=== PATIENT | female | born 1995 | race Caucasian/White ===

== ENCOUNTER → 2017-02-08 | Outpatient (CLI) | payer BC ==
[2017-02-08 17:19] LABS: HCT 37.9 % (34.0-46.0); MCH 31.4 pg (25.0-35.0); MCHC 31.7 g/dL (31.0-37.0); MCV 99.1 fL (80.0-100.0); Mean Platelet Volume 7.4; Platelet Count 258 k/uL (150-450); RBC 3.82 m/uL (3.80-5.40); RDW 12.5 % (11.5-15.5); WBC 10.4 k/uL (3.8-10.6)
[2017-02-09 02:51] LABS: Hemoglobin A1C 4.8 % (4.0-6.0)
[2017-02-09 03:11] LABS: HIV AB P24 Non-Reactive (Non-Reactive); HIV P24 AG Non-Reactive (Non-Reactive)
== END | disposition home or self-care (01) ==
LOC: LABWHC1 16:15
PROVIDERS: ATTEND Obstetrics & Gynecology Obstetrics
DX: O99.210 Obesity complicating pregnancy, unspecified trimester (principal); Z34.01 Encounter for supervision of normal first pregnancy, first trimester; Z3A.12 12 weeks gestation of pregnancy
CPT/HCPCS: 36415; 83036; 85027; 86762; 86780; 86850; 86900; 86901; 87340; 87390

== ENCOUNTER 2017-08-14 06:16 | Inpatient (IN) | payer BC ==
[2017-08-14] MEDS ORDERED: TERBUTALINE 1 MG/ML VIAL SQ PRN (06:23)
[2017-08-14] MEDS ORDERED: LIDOCAINE 1% (PF) 10 MG/ML (30 ML SDV) SQ PRN (06:23)
[2017-08-14] MEDS ORDERED: METHYLERGONOVINE 0.2 MG/ML 1 ML AMP IM PRN (06:23)
[2017-08-14] MEDS ORDERED: OXYTOCIN 10 UNIT/ML 1 ML VIAL IM PRN (06:23)
[2017-08-14] MEDS ORDERED: CARBOPROST TROMETHAMINE 250 MCG/ML 1 ML AMP IM PRN (06:23)
[2017-08-14] MEDS ORDERED: OXYTOCIN 20 UNITS/1000 ML NS 1,000 ML IV SCH ×2 (06:30→21:30)
[2017-08-14 06:35] VITALS: BMI 40.2
[2017-08-14] MEDS: LACTATED RINGERS 1,000 ML IV SCH ×3 (06:51→12:39)
[2017-08-14 06:59] LABS: Basophils % (A) 0 %; Eosinophils # (A) 0.2 k/uL (0-0.7); Eosinophils % (A) 2 %; HCT 31.3 % (34.0-46.0); HGB 10.6 gm/dL (11.4-16.0); Lymphocytes # (A) 2.2 k/uL (1.0-4.8); Lymphocytes % (A) 19 %; MCH 32.4 pg (25.0-35.0); MCV 95.2 fL (80.0-100.0); Monocytes # (A) 0.9 k/uL (0-1.0); Monocytes % (A) 7 %; Neutrophils % (A) 69 %; Platelet Count 264 k/uL (150-450); RBC 3.29 m/uL (3.80-5.40); RDW 13.4 % (11.5-15.5); WBC 11.6 k/uL (3.8-10.6)
[2017-08-14] MEDS ORDERED: DIPH,PERTUS(ACELL)TETVAC-LF 0.5 ML VIAL IM ONE (14:02)
[2017-08-14] MEDS ORDERED: ceFAZolin IN SWFI 2 GM/20 ML SYRINGE IVP ONE (19:59)
[2017-08-14] MEDS ORDERED: CITRIC ACID-SODIUM CITRATE 15 ML CUP PO ONE (19:59)
[2017-08-14] MEDS ORDERED: PRENATAL VIT-IRON-FOLIC ACID 1 EACH CAP PO ONE (20:00)
[2017-08-14] MEDS ORDERED: OXYTOCIN 10 UNIT/ML 1 ML VIAL ONE (20:27)
[2017-08-14] MEDS ORDERED: KETOROLAC 30 MG/ML 1 ML VIAL ONE (20:27)
[2017-08-14] MEDS ORDERED: PHENYLEPHRINE-0.9% NACL SYG 1 MG/10 ML SYRINGE ONE (20:27)
[2017-08-14] MEDS ORDERED: ONDANSETRON 4 MG/2 ML VIAL ONE (20:27)
[2017-08-14] MEDS ORDERED: MORPHINE SULFATE (PF) 0.3 MG/0.3 ML SYR ONE (20:27)
[2017-08-14] MEDS ORDERED: fentaNYL (PF) 50 MCG/ML 2 ML AMP ONE (20:27)
[2017-08-14] MEDS ORDERED: CHLOROPROCAINE 3% 30 MG/ML 20 ML VIAL ONE (20:27)
[2017-08-14] MEDS ORDERED: NALBUPHINE 10 MG/ML VIAL (10ML MDV) ONE (20:27)
--- NOTE | 2017-08-14 21:25 | P.OP ---
Date of Procedure: 08/14/17 Preoperative Diagnosis: IUP @ 40 weeks, arrest of 1 stage of labor Postoperative Diagnosis: same Procedure(s) Performed: primary LTCS Anesthesia: epidural Surgeon: Radha Ricci Grief Counsellor #1: Denis Chen Estimated Blood Loss (ml): 600 IV fluids (ml): 1,500 Urine output (ml): 100 Pathology: other (placenta) Condition: stable Disposition: observation Indications for Procedure: arrest of labor, pt was 4 cm at 8 am and now at 20:00 she remains 6cm for the last 2-3 hours. Operative Findings: Normal uterus tubes and ovaries were appreciated, male infant delivered at 2046 , weight of 7 lbs. 14 oz., Apgars of 9 and 9 at one and 5 minutes respectively Description of Procedure: The patient was prepped and draped in the usual fashion after spinal anesthesia was administered by anesthesia. A Pfannenstiel incision was made and extended of the abdominal cavity without difficulty. The bladder peritoneum was elevated and incised and reflected distally. A 2 cm incision was made in the transverse plane of the lower uterine segment to enter the uterus at which time clear fluid was noted. The incision was extended in both directions using the bandage scissors. The head was encountered within the field and delivered up and through the incision where the nose and mouth were thoroughly suctioned. Remainder of the infant was delivered onto the surgical field where the cord was doubly clamped, cut, and the infant was passed for resuscitative measures with weight and Apgars as noted above. A segment of cord was then doubly clamped, cut, and set aside should cord gases become necessary. The placenta was delivered manually, intact, and was grossly normal with a grossly normal three-vessel cord. The uterus was exteriorized and the interior cavity of the uterus swept of any remaining placental and membranous fragments with a laparotomy sponge. The margins of the incision were grasped with Castillo clamps and the incision closed in 2 layers. First layer was a running locking layer of 0 vicryl from margin to margin followed by a second layer of imbricating 0 vicryl from margin to margin. Any small points of bleeding were then made hemostatic with the Bovie. Once hemostasis was achieved, the posterior cul-de-sac was suctioned with a guard and the uterine and ovarian findings are as noted above. The uterus was replaced within the abdominal cavity and the gutters swept of any remaining blood fluid or clot. The incision was again reexamined and hemostasis was noted to be excellent. Any small point of bleeding were made hemostatic with the Bovie. Once hemostasis was achieved the parietal peritoneum was loosely reapproximated. The layer of muscles were examined and made hemostatic with the Bovie. Attention was then turned to the fascia which was closed with 2 running stitches of 0 Vicryl proceeding from the lateral margins to the midpoint. The subcutaneous tissues were irrigated, made hemostatic with the Bovie, and reapproximated with a running stitch of 30 vicryl. The skin was reapproximated with 4-0 vicryl. Estimated blood loss for the case was approximately 600 mL. All sponge instrument and needle counts are correct. There were no complications. The patient tolerated the procedure well and proceeded to the recovery room in stable condition. Both mother and infant are resting comfortably in recovery.
[2017-08-14] MEDS ORDERED: ZOLPIDEM 5 MG TAB PO PRN (21:26)
[2017-08-14] MEDS ORDERED: diphenhydrAMINE 50 MG CAP PO PRN (21:26)
[2017-08-14] MEDS ORDERED: METOCLOPRAMIDE 5 MG/ML 2 ML VIAL IVP PRN (21:26)
[2017-08-14] MEDS ORDERED: HYDROcodone/APAP 7.5-325MG 1 EACH TAB PO PRN (21:26)
[2017-08-14] MEDS ORDERED: diphenhydrAMINE 25 MG CAP PO PRN (21:26)
[2017-08-14] MEDS ORDERED: LANOLIN CREAM 5 GM TUBE TOPICAL PRN (21:26)
[2017-08-14] MEDS ORDERED: diphenhydrAMINE 50 MG/ML 1 ML VIAL IVP PRN ×2 (21:26)
[2017-08-14] MEDS ORDERED: ONDANSETRON 4 MG/2 ML VIAL IVP PRN (21:26)
[2017-08-14] MEDS ORDERED: NALOXONE 0.4 MG/ML 1 ML VIAL IV PRN (21:26)
[2017-08-14] MEDS ORDERED: ACETAMINOPHEN TAB 325 MG TAB PO PRN (21:26)
--- NOTE | 2017-08-14 21:26 | P.HPOB ---
History of Present Illness H&P Date: 08/14/17 Chief Complaint: IUP 2 40 0/7 weeks This is a 21 yo that presents for induction of labor. she notes good FM, no VB, LOF has been uncomplicated and she has been receiving PNC with myself since 12 weeks gestation she does have a h/o hyperparathyroidism which her PCP follows. on labs bloodtype B pos, rubella immune, RPR NR, HIV neg, GBS neg 07/11. Review of Systems Constitutional: Denies chills, Denies fatigue, Denies fever Ears, nose, mouth and throat: Denies headache Cardiovascular: Reports edema Respiratory: Denies cough, Denies dyspnea Gastrointestinal: Denies constipation, Denies diarrhea Genitourinary: Reports Past Medical History Additional Past Medical History / Comment(s): hyperparathyroidism History of Any Multi-Drug Resistant Organisms: None Reported Past Surgical History: No Surgical Hx Reported Additional Past Surgical History / Comment(s): Gallbladder removed Past Anesthesia/Blood Transfusion Reactions: No Reported Reaction Past Psychological History: No Psychological Hx Reported Smoking Status: Never smoker Past Alcohol Use History: None Reported Past Drug Use History: None Reported - Past Family History Father Family Medical History: Hypertension Medications and Allergies Home Medications Medication Instructions Recorded Confirmed Type Pnv No.95/Ferrous Fum/Folic AC 1 each PO ONCE 08/14/17 08/14/17 History [ Multivitamin Tablet] Allergies Allergy/AdvReac Type Severity Reaction Status Date / Time No Known Allergies Allergy Verified 08/14/17 06:22 Exam Osteopathic Statement: *. No significant issues noted on an osteopathic structural exam other than those noted in the History and Physical/Consult. Vital Signs Temp Pulse Resp BP Pulse Ox 08/14/17 06:21 98.4 F 100 16 133/93 98 Intake and Output 08/13/17 08/14/17 08/14/17 22:59 06:59 14:59 Other: Weight 99.79 kg - OBG Physical Exam Abdomen: gravid Cervix: 3-4/80/-3-2 soft anterior, AROM with clear fluid noted Uterus: enlarged Results Result Diagrams: 08/14/17 06:45 Abnormal Lab Results - Last 24 Hours (Table) 08/14/17 Range/Units 06:45 WBC 11.6 H (3.8-10.6) k/uL RBC 3.29 L (3.80-5.40) m/uL Hgb 10.6 L (11.4-16.0) gm/dL Hct 31.3 L (34.0-46.0) % Neutrophils # 8.0 H (1.3-7.7) k/uL Assessment and Plan (1) Term Current Visit: Yes Status: Acute Code(s): Z34.80 - ENCOUNTER FOR SUPRVSN OF NORMAL , UNSP TRIMESTER SNOMED Code(s): 02083420 Plan: plan induction of labor with pitocin, pt desires epidural for pain management.
[2017-08-14] MEDS ORDERED: LACTATED RINGERS 1,000 ML IV SCH (21:30)
[2017-08-14] MEDS ORDERED: ACETAMINOPHEN IV (For NPO) 1,000 MG in EMPTY BAG 1 BAG IVPB ONE (22:00)
[2017-08-14] MEDS ORDERED: IBUPROFEN IV 800 MG in SODIUM CHLORIDE 0.9% 250 ML IV ONE (23:00)
[2017-08-15 07:50] LABS: Basophils % (A) 0 %; Eosinophils # (A) 0.1 k/uL (0-0.7); Eosinophils % (A) 1 %; HCT 25.7 % (34.0-46.0); Lymphocytes # (A) 1.9 k/uL (1.0-4.8); Lymphocytes % (A) 13 %; MCH 31.8 pg (25.0-35.0); MCHC 32.9 g/dL (31.0-37.0); MCV 96.7 fL (80.0-100.0); Mean Platelet Volume 7.6; Monocytes # (A) 0.7 k/uL (0-1.0); Monocytes % (A) 5 %; Neutrophils # (A) 11.4 k/uL (1.3-7.7); Neutrophils % (A) 79 %; Platelet Count 220 k/uL (150-450); RBC 2.65 m/uL (3.80-5.40); RDW 13.4 % (11.5-15.5); WBC 14.4 k/uL (3.8-10.6)
[2017-08-15 07:55] LABS: HGB 8.5 gm/dL (11.4-16.0)
--- NOTE | 2017-08-15 08:21 | P.PNOBGPC ---
Subjective - Subjective Principal diagnosis: POD 1 LTCS Interval history: Pt has done well overnight, her Ortega remains as she had significant vulvar swelling last night prior to the . Clear yellow urine is noted within the catheter. She denies pain overnight and states he slept well. She is breast-feeding without difficulty. Her lochia is moderate in nature. She is tolerating a regular diet without nausea or vomiting Patient reports: Reports appetite normal, Reports voiding normally, Reports pain well controlled, Reports ambulating normally : doing well Objective - Vital Signs Latest vital signs: Vital Signs Temp Pulse Resp BP Pulse Ox 08/15/17 05:39 98.5 F 73 18 131/56 97 08/14/17 22:52 89 16 110/64 98 08/14/17 22:26 97.8 F 73 16 108/58 99 08/14/17 22:11 72 16 108/59 99 08/14/17 21:56 87 16 109/55 97 08/14/17 21:41 95 16 117/57 98 08/14/17 21:26 97.8 F 98 16 129/60 98 Intake and Output 08/14/17 08/15/17 08/15/17 22:59 06:59 14:59 Output Total 100 Balance -100 Output: Urine 100 - Exam Extremities: Present: normal, edema Abdomen: Present: normal appearance, soft Incision: Present: normal, dry, intact Uterus: Present: normal, firm - Labs Labs: Abnormal Lab Results - Last 24 Hours (Table) 08/15/17 Range/Units 07:38 WBC 14.4 H (3.8-10.6) k/uL RBC 2.65 L (3.80-5.40) m/uL Hgb 8.5 L D (11.4-16.0) gm/dL Hct 25.7 L (34.0-46.0) % Neutrophils # 11.4 H (1.3-7.7) k/uL Assessment and Plan (1) Term Current Visit: Yes Status: Acute Code(s): Z34.80 - ENCOUNTER FOR SUPRVSN OF NORMAL , UNSP TRIMESTER SNOMED Code(s): 64674757 (2) Arrested labor Current Visit: Yes Status: Acute Code(s): O62.1 - SECONDARY UTERINE INERTIA SNOMED Code(s): 78896118 (3) S/P section Current Visit: Yes Status: Acute Code(s): Z98.891 - HISTORY OF UTERINE SCAR FROM PREVIOUS SURGERY SNOMED Code(s): 584161530 Plan: We'll continue routine postoperative care. We'll discontinue her Ortega this morning advance her diet as tolerated and encourage increased ambulation throughout the day.
--- NOTE | 2017-08-15 10:59 | P.PN ---
Progress Note - Text Date:08/15 Time:650am Patient is status post . Patient seen this morning with VAS score of 9.no c/o of pruritus, no c/o nausea/vomiting, comfortable and doing well.
[2017-08-15] MEDS: SENNOSIDES-DOCUSATE SODIUM 1 EACH TAB PO SCH ×2 (14:20→20:17)
[2017-08-15] MEDS: IBUPROFEN 600 MG TAB PO PRN ×2 (16:34→23:54)
[2017-08-15] MEDS: HYDROcodone/APAP 5-325MG 1 EACH TAB PO PRN (20:37)
[2017-08-16] MEDS: HYDROcodone/APAP 5-325MG 1 EACH TAB PO PRN (04:15)
[2017-08-16] MEDS: SENNOSIDES-DOCUSATE SODIUM 1 EACH TAB PO SCH (08:23)
[2017-08-16] MEDS: IBUPROFEN 600 MG TAB PO PRN (08:23)
--- NOTE | 2017-08-16 08:55 | P.DS ---
Providers Date of admission: 08/14/17 06:16 Expected date of discharge: 08/16/17 Attending physician: Radha Ricci Primary care physician: Fred Del Real - Discharge Diagnosis(es) (1) Term Current Visit: Yes Status: Acute (2) Arrested labor Current Visit: Yes Status: Acute (3) S/P section Current Visit: Yes Status: Acute Hospital Course: This is a very pleasant 21-year-old 1 now para 1 that presented to labor and delivery on 710 for induction of labor. Patient was 40 weeks and 0 days at that time. Patient was started on Pitocin induction of labor amniotomy was eventually performed yielding clear fluid. Patient progressed minimally throughout the day eventually becoming uncomfortable and requesting an epidural. Patient was 4 cm on the start of the induction at 8 AM and only progressed to 6 cm at 2000 later that evening. At that time patient was counseled on arrest of first stage of labor in the need for primary . Patient was noted to have a low-grade temp at the time of 99.5 in addition so infection was becoming a question as well as arrest of labor. Patient was taken for primary low transverse section after informed consent was obtained. was completed without difficulty for further details on the please see the operative report. Patient had a viable male delivered at 2046 weight of 7 lbs. 14 oz., Apgars of 9 and 9 at one and 5 minutes respectively. Patient's postoperative course has been uneventful. She is ambulating and voiding without difficulty. She is tolerating a regular diet without nausea or vomiting. She states her pain is well-controlled with oral Motrin. She does wish discharge home today, On this day #2 Plan - Discharge Summary New Discharge Prescriptions: No Action Pnv No.95/Ferrous Fum/Folic AC [ Multivitamin Tablet] 1 each PO ONCE Discharge Medication List Pnv No.95/Ferrous Fum/Folic AC [ Multivitamin Tablet] 1 each PO ONCE 11/22 [History] Follow up Appointment(s)/Referral(s): Radha Ricci DO [Doctor of Osteopathic Medicine] - 2 Weeks Patient Instructions/Handouts: (DC), (GEN) Activity/Diet/Wound Care/Special Instructions: No tub baths or intercourse until 6 weeks Discharge Disposition: HOME SELF-CARE
[2017-08-16 09:06] VITALS: BP 124/68; RESP 16
[2017-08-16 13:07] VITALS: PULSE 72; TEMP 98.4
== END 2017-08-16 13:00 | disposition home or self-care (01) | DRG 765 ==
LOC: 4FBP 06:16
PROVIDERS: ADMIT Obstetrics & Gynecology Obstetrics; ATTEND Obstetrics & Gynecology Obstetrics
PROC: 00HU33Z Insertion of Infusion Device into Spinal Canal, Percutaneous Approach (ICD-10-PCS; 2017-08-14)
PROC: 3E0R3NZ Introduction of Analgesics, Hypnotics, Sedatives into Spinal Canal, Percutaneous Approach (ICD-10-PCS; 2017-08-14)
PROC: 10D00Z1 Extraction of Products of Conception, Low, Open Approach (ICD-10-PCS; principal; 2017-08-14 20:27)
DX: O62.0 Primary inadequate contractions (principal); O75.2 Pyrexia during labor, not elsewhere classified; O99.284 Endocrine, nutritional and metabolic diseases complicating childbirth; E21.3 Hyperparathyroidism, unspecified; Z37.0 Single live birth; Z3A.40 40 weeks gestation of pregnancy
CPT/HCPCS: 85025; 90715

== ENCOUNTER 2018-09-30 07:57 | Emergency (ER) | payer BC, OTHER ==
[2018-09-30 08:03] VITALS: TEMP 97.8
[2018-09-30] MEDS ORDERED: KETOROLAC 30 MG/ML 1 ML VIAL IVP STA (08:27)
[2018-09-30] MEDS ORDERED: SODIUM CHLORIDE 0.9% 1,000 ML IV STA (08:27)
[2018-09-30] MEDS ORDERED: ONDANSETRON 4 MG/2 ML VIAL IVP STA (08:27)
--- NOTE | 2018-09-30 08:40 | ED ---
General Adult HPI - General Chief complaint: Back Pain/Injury Stated complaint: kidney stone Time Seen by Provider: 09/30/18 08:04 Source: patient, RN notes reviewed Mode of arrival: ambulatory Limitations: no limitations - History of Present Illness Initial comments: 23-year-old female presents to the emergency department for a chief complaint of right-sided lower back pain. This started around 6 AM this morning. States it is radiating around to her groin as well. Patient has a family history of kidney stones but does not have any kidney stone herself. She does have some nausea no vomiting. Denies fevers or chills. Denies dysuria. Denies d ifficulty urinating. Denies any Abdominal pain but states it is radiating into the abdomen.Patient has no other complaints at this time including shortness of breath, chest pain, nausea or vomiting, headache, or visual changes. - Related Data Previous Rx's Medication Instructions Recorded HYDROcodone/APAP 5-325MG [[place] 1 tab PO Q6HR PRN #10 tab 09/30/18 5-325] Ibuprofen [Motrin] 600 mg PO Q8HR PRN #20 tab 09/30/18 Ondansetron [Zofran ODT] 4 mg PO Q8HR PRN #15 tab 09/30/18 Allergies Allergy/AdvReac Type Severity Reaction Status Date / Time No Known Allergies Allergy Verified 09/30/18 08:10 Review of Systems ROS Statement: Those systems with pertinent positive or pertinent negative responses have been documented in the HPI. ROS Other: All systems not noted in ROS Statement are negative. Past Medical History Additional Past Medical History / Comment(s): hyperparathyroidism History of Any Multi-Drug Resistant Organisms: None Reported Past Surgical History: Appendectomy, Section, Cholecystectomy Additional Past Surgical History / Comment(s): Gallbladder removed Past Anesthesia/Blood Transfusion Reactions: No Reported Reaction Past Psychological History: No Psychological Hx Reported Smoking Status: Never smoker Past Alcohol Use History: None Reported Past Drug Use History: None Reported - Past Family History Father Family Medical History: Hypertension General Exam Limitations: no limitations General appearance: alert, in no apparent distress Head exam: Present: atraumatic, normocephalic, normal inspection Eye exam: Present: normal appearance, PERRL, EOMI. Absent: scleral icterus, conjunctival injection, periorbital swelling ENT exam: Present: normal exam, mucous membranes moist Neck exam: Present: normal inspection, full ROM. Absent: tenderness, meningismus, lymphadenopathy Respiratory exam: Present: normal lung sounds bilaterally. Absent: respiratory distress, wheezes, rales, rhonchi, stridor Cardiovascular Exam: Present: regular rate, normal rhythm, normal heart sounds. Absent: systolic murmur, diastolic murmur, rubs, gallop, clicks GI/Abdominal exam: Present: soft, normal bowel sounds. Absent: distended, tenderness, guarding, rebound, rigid Back exam: Present: CVA tenderness (R). Absent: CVA tenderness (L) Neurological exam: Present: alert Psychiatric exam: Present: normal affect, normal mood Course Vital Signs 09/30/18 09/30/18 09/30/18 08:01 09:37 10:49 Temperature 97.8 F Pulse Rate 76 60 80 Respiratory 18 14 14 Rate Blood Pressure 132/73 117/70 112/62 O2 Sat by Pulse 99 98 98 Oximetry - Reevaluation(s) Reevaluation #1: 09/30/18 08:54 Delay in care by lab processing. Patient was brought into the bathroom immediately upon arrival and hCG was sent before receiving any other lab work so we could have a negative urine hCG before giving pain medication. However this was taking some time to resolve. I called to check on this at 8:50 AM and it had not even been started yet. Patient is in significant pain and is requesting pain medicine before this comes back as she does not believe she is . Medical Decision Making - Medical Decision Making 23-year-old female presents to the emergency department for right flank pain. This started approximately at 6 AM. Patient has a family history of men 1 and a history of hypercalcemia. Exam patient does have right CVA tenderness without any right lower quadrant tenderness. History of appendectomy and cholecystectomy. CBC unremarkable. CMP does show a calcium of 10.9 which patient has a history of. Glucose is 205 , no history of diabetes that she will follow up with primary care for fasting glucose. Urine does show greater than 1 82 red blood cells and clinically is consistent with a kidney stone. HCG is negative. Ultrasound of the kidneys renal and bladder show right renal stone without obstruction at the inferior pole of fullness at the renal pelvis. The left kidney shows multiple cysts in her echogenic foci that may be tiny stones. Patient likely expressing renal colic at this time. Patient reevaluated after pain medication, feels much better at this time. Patient will be discharged home with urology follow-up and pain medication. Will return here if she is any worsening symptoms. - Lab Data Result diagrams: 09/30/18 08:30 09/30/18 08:30 Lab Results 09/30/18 09/30/18 09/30/18 Range/Units 08:06 08:06 08:30 WBC (3.8-10.6) k/uL RBC (3.80-5.40) m/uL Hgb (11.4-16.0) gm/dL Hct (34.0-46.0) % MCV (80.0-100.0) fL MCH (25.0-35.0) pg MCHC (31.0-37.0) g/dL RDW (11.5-15.5) % Plt Count (150-450) k/uL Neutrophils % % Lymphocytes % % Monocytes % % Eosinophils % % Basophils % % Neutrophils # (1.3-7.7) k/uL Lymphocytes # (1.0-4.8) k/uL Monocytes # (0-1.0) k/uL Eosinophils # (0-0.7) k/uL Basophils # (0-0.2) k/uL Sodium 138 (137-145) mmol/L Potassium 4.0 (3.5-5.1) mmol/L Chloride 107 (98-107) mmol/L Carbon Dioxide 21 L (22-30) mmol/L Anion Gap 10 mmol/L BUN 13 (7-17) mg/dL Creatinine 0.65 (0.52-1.04) mg/dL Est GFR (CKD-EPI)AfAm >90 (>60 ml/min/1.73 sqM) Est GFR (CKD-EPI)NonAf >90 (>60 ml/min/1.73 sqM) Glucose 205 H (74-99) mg/dL Calcium 10.9 H (8.4-10.2) mg/dL Total Bilirubin 0.4 (0.2-1.3) mg/dL AST 27 (14-36) U/L ALT 53 H (9-52) U/L Alkaline Phosphatase 102 (38-126) U/L Total Protein 7.1 (6.3-8.2) g/dL Albumin 4.1 (3.5-5.0) g/dL Amylase 48 (30-110) U/L Lipase 69 (23-300) U/L Urine Color Yellow Urine Appearance Cloudy H (Clear) Urine pH 6.5 (5.0-8.0) Ur Specific [place] 1.018 (1.001-1.035) Urine Protein Trace H (Negative) Urine Glucose (UA) Negative (Negative) Urine Ketones Negative (Negative) Urine Blood Large H (Negative) Urine Nitrite Negative (Negative) Urine Bilirubin Negative (Negative) Urine Urobilinogen <2.0 (<2.0) mg/dL Ur Leukocyte Esterase Negative (Negative) Urine RBC >182 H (0-5) /hpf Urine WBC 6 H (0-5) /hpf Ur Squamous Epith Cells 8 H (0-4) /hpf Urine Mucus Few H (None) /hpf Urine HCG, Qual Not Detected (Not Detectd) 09/30/18 Range/Units 08:30 WBC 10.6 (3.8-10.6) k/uL RBC 4.15 (3.80-5.40) m/uL Hgb 13.3 (11.4-16.0) gm/dL Hct 39.7 (34.0-46.0) % MCV 95.8 (80.0-100.0) fL MCH 32.1 (25.0-35.0) pg MCHC 33.5 (31.0-37.0) g/dL RDW 14.1 (11.5-15.5) % Plt Count 324 (150-450) k/uL Neutrophils % 64 % Lymphocytes % 28 % Monocytes % 4 % Eosinophils % 2 % Basophils % 0 % Neutrophils # 6.8 (1.3-7.7) k/uL Lymphocytes # 2.9 (1.0-4.8) k/uL Monocytes # 0.5 (0-1.0) k/uL Eosinophils # 0.2 (0-0.7) k/uL Basophils # 0.0 (0-0.2) k/uL Sodium (137-145) mmol/L Potassium (3.5-5.1) mmol/L Chloride (98-107) mmol/L Carbon Dioxide (22-30) mmol/L Anion Gap mmol/L BUN (7-17) mg/dL Creatinine (0.52-1.04) mg/dL Est GFR (CKD-EPI)AfAm (>60 ml/min/1.73 sqM) Est GFR (CKD-EPI)NonAf (>60 ml/min/1.73 sqM) Glucose (74-99) mg/dL Calcium (8.4-10.2) mg/dL Total Bilirubin (0.2-1.3) mg/dL AST (14-36) U/L ALT (9-52) U/L Alkaline Phosphatase (38-126) U/L Total Protein (6.3-8.2) g/dL Albumin (3.5-5.0) g/dL Amylase (30-110) U/L Lipase (23-300) U/L Urine Color Urine Appearance (Clear) Urine pH (5.0-8.0) Ur Specific [place] (1.001-1.035) Urine Protein (Negative) Urine Glucose (UA) (Negative) Urine Ketones (Negative) Urine Blood (Negative) Urine Nitrite (Negative) Urine Bilirubin (Negative) Urine Urobilinogen (<2.0) mg/dL Ur Leukocyte Esterase (Negative) Urine RBC (0-5) /hpf Urine WBC (0-5) /hpf Ur Squamous Epith Cells (0-4) /hpf Urine Mucus (None) /hpf Urine HCG, Qual (Not Detectd) Disposition Clinical Impression: Renal colic on right side, Kidney stone Disposition: HOME SELF-CARE Condition: Fair Instructions (If sedation given, give patient instructions): Renal Colic (ED) Additional Instructions: Please take Motrin for pain. If pain is severe take [place]. Do not drive or operate machinery while taking [place]. Follow-up with urology in 1-2 days. Follow-up with primary care as well for repeat lab work. Return if you have any worsening symptoms. Prescriptions: Ibuprofen [Motrin] 600 mg PO Q8HR PRN #20 tab PRN Reason: Pain HYDROcodone/APAP 5-325MG [[place] 5-325] 1 tab PO Q6HR PRN #10 tab PRN Reason: Pain Ondansetron [Zofran ODT] 4 mg PO Q8HR PRN #15 tab PRN Reason: Nausea Is patient prescribed a controlled substance at d/c from ED?: No Referrals: Fred Del Real DO [Primary Care Provider] - 1-2 days Modesto Fernandez MD [STAFF PHYSICIAN] - 1-2 days Time of Disposition: 10:32
[2018-09-30 08:54] LABS: Basophils % (A) 0 %; Eosinophils # (A) 0.2 k/uL (0-0.7); Eosinophils % (A) 2 %; HCT 39.7 % (34.0-46.0); HGB 13.3 gm/dL (11.4-16.0); Lymphocytes # (A) 2.9 k/uL (1.0-4.8); Lymphocytes % (A) 28 %; MCH 32.1 pg (25.0-35.0); MCHC 33.5 g/dL (31.0-37.0); MCV 95.8 fL (80.0-100.0); Mean Platelet Volume 7.8; Monocytes # (A) 0.5 k/uL (0-1.0); Monocytes % (A) 4 %; Neutrophils # (A) 6.8 k/uL (1.3-7.7); Neutrophils % (A) 64 %; Platelet Count 324 k/uL (150-450); RBC 4.15 m/uL (3.80-5.40); RDW 14.1 % (11.5-15.5); WBC 10.6 k/uL (3.8-10.6)
[2018-09-30 09:04] LABS: ALT 53 U/L (9-52); AST 27 U/L (14-36); African American GFR (CKD) >90 (>60 ml/min/1.73 sqM); Albumin 4.1 g/dL (3.5-5.0); Alkaline Phosphatase 102 U/L (38-126); Amylase 48 U/L (30-110); Anion Gap 10 mmol/L; Blood Urea Nitrogen 13 mg/dL (7-17); Calcium 10.9 mg/dL (8.4-10.2); Carbon Dioxide 21 mmol/L (22-30); Chloride 107 mmol/L (98-107); Glucose 205 mg/dL (74-99); Sodium 138 mmol/L (137-145); Total Bilirubin 0.4 mg/dL (0.2-1.3); Total Protein 7.1 g/dL (6.3-8.2)
[2018-09-30 09:17] LABS: Appearance,Urine Cloudy (Clear); Bilirubin,Urine Negative (Negative); Blood,Urine Large (Negative); Color,Urine Yellow; Glucose,Urine (UA) Negative (Negative); Ketones,Urine Negative (Negative); Leukocyte Esterase,Urine Negative (Negative); Mucus,Urine Few /hpf; Nitrite,Urine Negative (Negative); PH, Urine 6.5 (5.0-8.0); Protein,Urine Trace (Negative); RBC,Urine >182 /hpf (0-5); Specific Gravity,Urine 1.018 (1.001-1.035); Squamous Epithelial Cell,Urine 8 /hpf (0-4); Urobilinogen,Urine <2.0 mg/dL (<2.0)
[2018-09-30 09:47] VITALS: RESP 14
[2018-09-30] MEDS ORDERED: MORPHINE SULFATE 4 MG/ML SYRINGE IVP STA (10:00)
--- NOTE | 2018-09-30 10:21 | US ---
EXAMINATION TYPE: US kidneys/renal and bladder DATE OF EXAM: 09/30/2018 COMPARISON: NONE CLINICAL HISTORY: Pain. right flank pain this am with gross hematuria, mom has MEN type 1 EXAM MEASUREMENTS: Right Kidney: 10.8 x 5.5 x 5.3cm Left Kidney: 10.9 x 4.8 x 6.4 cm Right Kidney: 0.7 x 0.6cm shadowing foci may represent a atone at inferior pole, fullness at renal pe lvis Left Kidney: multiple subcentimeter echogenic foci seen that may be tiny stones versus other etiology Bladder: not distended IMPRESSION: 1. Right renal stone without obstruction. 2. Probable multiple small left renal stones without obstruction
[2018-09-30 10:54] VITALS: BP 112/62; PULSE 80
== END 2018-09-30 10:49 | disposition home or self-care (01) ==
LOC: EC 07:57
DX: N20.0 Calculus of kidney (principal); N28.1 Cyst of kidney, acquired; Z86.39 Personal history of other endocrine, nutritional and metabolic disease; Z90.49 Acquired absence of other specified parts of digestive tract; Z90.89 Acquired absence of other organs; Z84.1 Family history of disorders of kidney and ureter
CPT/HCPCS: 36415; 80053; 82150; 83690; 85025; 81001; 81025; 76770; 96374; 96375 ×2; 96361; 99284; J2270; J2405; J1885

== ENCOUNTER → 2018-10-03 | Outpatient (CLI) | payer BC, OTHER ==
--- NOTE | 2018-10-03 14:07 | CT ---
EXAMINATION TYPE: CT abdomen pelvis wo con DATE OF EXAM: 10/03/2018 HISTORY: Right sided abdominal pain x [address] DLP: 1041.9 mGycm. Automated Exposure Control for Dose Reduction was Utilized. TECHNIQUE: CT scan of the abdomen and pelvis is performed without oral or IV contrast. COMPARISON: Renal ultrasound 3 days ago FINDINGS: Within the limitations of a non-contrast study, the following observations are made. LUNG BASES: No significant abnormality is appreciated. LIVER/GB: Cholecystectomy clips are present. PANCREAS: No significant abnormality is seen. SPLEEN: No significant abnormality is seen. ADRENALS: No significant abnormality is seen. KIDNEYS: There is 2 to 3 mm calculus right kidney midpole level coronal image 64 and 3 to 4 mm calcul us lower pole level coronal image 52. There is 2 to 3 mm calculus at right UVJ causing asymmetric mil d right-sided hydronephrosis and diffuse hydroureter. No left-sided renal calculi or hydronephrosis BOWEL: Incidental normal-appearing appendix from base of cecum right lower quadrant. No suspicious sm all or large bowel dilatation. GENITAL ORGANS: Anteverted uterus. Tiny amount of free fluid pelvic cul-de-sac axial image 119, nonsp ecific. LYMPH NODES: No greater than 1cm abdominal or pelvic lymph nodes are appreciated. OSSEOUS STRUCTURES: No significant abnormality is seen. OTHER: No significant additional abnormality is seen. IMPRESSION: There is 2 to 3 mm calculus at right UVJ causing mild right-sided hydronephrosis.
== END | disposition home or self-care (01) ==
LOC: RADCTMAIN 13:41
PROVIDERS: ATTEND Urology
DX: N13.2 Hydronephrosis with renal and ureteral calculous obstruction (principal)
CPT/HCPCS: 74176

== ENCOUNTER → 2019-02-07 | Outpatient (CLI) | payer BC, OTHER ==
[2019-02-07 10:29] LABS: Ionized Calcium 4.4 mg/dL (4.5-5.3)
[2019-02-07 10:34] LABS: Calcium 8.2 mg/dL (8.4-10.2); Magnesium 1.6 mg/dL (1.6-2.3)
== END | disposition home or self-care (01) ==
LOC: LABWHC1 09:22
PROVIDERS: ATTEND Surgery
DX: E21.0 Primary hyperparathyroidism (principal)
CPT/HCPCS: 36415; 82306; 82310; 82330; 83735; 83970

== ENCOUNTER → 2019-02-12 | Outpatient (CLI) | payer BC, OTHER ==
[2019-02-12 12:10] LABS: Ionized Calcium 4.6 mg/dL (4.5-5.3)
[2019-02-12 18:39] LABS: Calcium 8.2 mg/dL (8.7-10.3); Magnesium 1.5 mg/dL (1.5-2.4)
== END | disposition home or self-care (01) ==
LOC: LABWHC1 11:38
PROVIDERS: ATTEND Surgery
DX: E21.0 Primary hyperparathyroidism (principal); E31.21 Multiple endocrine neoplasia [MEN] type I
CPT/HCPCS: 36415; 82306; 82310; 82330; 83735; 83970

== ENCOUNTER → 2019-07-03 | Outpatient (CLI) | payer BC, OTHER | END | disposition home or self-care (01) | LOC: LABWHC1 11:46 | PROVIDERS: ATTEND Obstetrics & Gynecology Obstetrics | DX: O20.0 Threatened abortion (principal) | CPT/HCPCS: 36415; 84702; 86850; 86900; 86901 ==

== ENCOUNTER → 2019-07-05 | Outpatient (CLI) | payer BC, OTHER | END | disposition home or self-care (01) | LOC: LABMAIN 11:39 | PROVIDERS: ATTEND Obstetrics & Gynecology Obstetrics | DX: O20.0 Threatened abortion (principal) | CPT/HCPCS: 36415; 84702 ==

== ENCOUNTER → 2019-07-09 | Outpatient (CLI) | payer BC, OTHER ==
[2019-07-09 10:54] LABS: Basophils % (A) 0 %; Eosinophils # (A) 0.1 k/uL (0-0.7); Eosinophils % (A) 1 %; HCT 41.5 % (34.0-46.0); HGB 13.1 gm/dL (11.4-16.0); Lymphocytes # (A) 2.2 k/uL (1.0-4.8); Lymphocytes % (A) 28 %; MCH 32.1 pg (25.0-35.0); MCHC 31.6 g/dL (31.0-37.0); MCV 101.8 fL (80.0-100.0); Macrocytosis Slight; Mean Platelet Volume 7.4; Monocytes # (A) 0.5 k/uL (0-1.0); Monocytes % (A) 7 %; Neutrophils # (A) 4.9 k/uL (1.3-7.7); Neutrophils % (A) 62 %; Platelet Count 270 k/uL (150-450); RBC 4.08 m/uL (3.80-5.40); RDW 13.1 % (11.5-15.5); WBC 7.9 k/uL (3.8-10.6)
== END | disposition home or self-care (01) ==
LOC: LABPAT 10:00
PROVIDERS: ATTEND Obstetrics & Gynecology Obstetrics
DX: Z01.818 Encounter for other preprocedural examination (principal); Z11.59 Encounter for screening for other viral diseases; O02.1 Missed abortion
CPT/HCPCS: 86900; 86901; 85025; 86850; 36415; U0003

== ENCOUNTER → 2019-07-10 | Day surgery (SDC) | payer BC, OTHER ==
[2019-07-09 12:19] VITALS: BMI 38.4
[~2019-07-10] MED LIST: KETOROLAC 0.5% OPHTH DROPS 5 ML BTL RIGHT EYE STA; KETOROLAC 30 MG/ML 1 ML VIAL ONE; LACTATED RINGERS 1,000 ML IV ONE; LIDOCAINE 1% (10MG/ML) FOR IV START INTRADERMA ONE; LIDOCAINE 1% INJ 10MG/ML (20 ML MDV) ONE; LIDOCAINE 1%-EPI 1:100,000 20 ML VIAL SUBMUCOSAL ONE; METHYLERGONOVINE 0.2 MG/ML 1 ML AMP ONE; MIDAZOLAM 2 MG/2 ML VIAL IV ONE; MIDAZOLAM 2 MG/2 ML VIAL ONE; PROPOFOL 10 MG/ML 20 ML VIAL IV ONE; Pre Op ABX Message 1 EACH MISC MISCELLANE ONE; SILVER NITRATE APPLICATOR 1 EACH STICK..EA. TOPICAL ONE; fentaNYL (PF) 50 MCG/ML 2 ML AMP ONE
--- NOTE | 2019-07-10 12:05 | P.OP ---
Date of Procedure: 07/10/19 Preoperative Diagnosis: Missed AB Postoperative Diagnosis: same Procedure(s) Performed: Suction dilation and curettage Anesthesia: DIOGENES Surgeon: Radha Ricci Estimated Blood Loss (ml): 50 IV fluids (ml): 500 Urine output (ml): 100 Pathology: other (Uterine contents) Condition: stable Disposition: PACU Indications for Procedure: This is a 23-year-old 1 para 0 that presented to the office for follow- up ultrasound. Patient had previously had quantitative beta [place]CGs [place] 07[place]02 [place] [address] and subsequently 2 days later [place] 07[place]04 [place] [address]. Patient is noted to be Rh+. On ultrasound no growth of the gestational sac and no FHTS were noted consistent with missed AB. Operative Findings: Moderate amount of products of conception Description of Procedure: Patient was taken operating room where general anesthesia was obtained without difficulty by the anesthesia . She was prepped and draped in normal sterile fashion in the dorsal lithotomy position. Red rubber catheter was used to drain the bladder clear yellow urine. A weighted speculum was placed in the posterior vaginal vault, the anterior lip of the cervix is visualized and grasped with a single-tooth tenaculum. The endocervical canal was then dilated and an 8 curved suction curet was used to clear the uterus of a moderate amount of products of conception. A gentle sharp curettage was performed and the uterus was noted to be clear of all products. The suction curet was passed one additional time to ensure complete evacuation of uterine contents. Uterus is noted to be firm, the tooth tenaculum that had been placed on the anterior lip of the cervix was removed and hemostasis was appreciated. Next para patient tolerated procedure well all counts are correct 2 patient was taken the recovery room awake in stable condition.
[2019-07-10 12:20] VITALS: TEMP 97.9
[2019-07-10 13:01] VITALS: BP 103/62; PULSE 74; RESP 17
== END | disposition home or self-care (01) ==
LOC: OR 10:35
PROVIDERS: ATTEND Obstetrics & Gynecology Obstetrics
DX: O02.1 Missed abortion (principal); E31.21 Multiple endocrine neoplasia [MEN] type I; E89.2 Postprocedural hypoparathyroidism; E66.01 Morbid (severe) obesity due to excess calories; Z90.49 Acquired absence of other specified parts of digestive tract; Z87.442 Personal history of urinary calculi; Z98.891 History of uterine scar from previous surgery; Z82.49 Family history of ischemic heart disease and other diseases of the circulatory system; Z83.3 Family history of diabetes mellitus; Z80.3 Family history of malignant neoplasm of breast; Z80.8 Family history of malignant neoplasm of other organs or systems; Z91.041 Radiographic dye allergy status; Z68.38 Body mass index [BMI] 38.0-38.9, adult
CPT/HCPCS: 86900; 86901; 88305; 86850; 59820; J2250; J2210; J2001; J3010; J1885; J2704

== ENCOUNTER → 2019-11-03 | Outpatient (CLI) | payer BC, OTHER ==
--- NOTE | 2019-11-04 05:04 | MR ---
EXAMINATION TYPE: MR abdomen wo/w con DATE OF EXAM: 11/03/2019 COMPARISON: None HISTORY: Multiple endocrine neoplasia. CONTRAST: Standard multiplanar, multisequence MRI departmental protocol utilizing 9.5 mL intravenous gadolinium contrast. Liver shows no focal defect. Liver has normal size and contour. Spleen is intact. The stomach appears intact. Pancreas appears normal. Pancreatic duct appears normal. Gallbladder is absent. There is no adrenal mass. Kidneys have normal size and contour. There is no hydronephrosis. There is no evidence of retroperitoneal adenopathy. There is no evidence of abdominal ascites. There is no sig n of a bowel obstruction. There is no evidence of pleural effusion. Contrast images show no pathologi c enhancement. There is normal enhancement of the portal venous system. Visualized thoracic and lumba r spine appear intact. There is no evidence of thoracic paraspinal mass. There is no evidence of mese nteric edema or mesenteric mass. IMPRESSION: Normal MR scan of the abdomen. There is clearing of the right side hydronephrosis compared to old CT scan of 10/03/2018.
== END | disposition home or self-care (01) ==
LOC: RADMRIMAIN 20:22
PROVIDERS: ATTEND Internal Medicine Endocrinology, Diabetes & Metabolism
DX: E31.21 Multiple endocrine neoplasia [MEN] type I (principal)
CPT/HCPCS: 74183; A9585

== ENCOUNTER → 2020-01-12 | Outpatient (CLI) | payer BC, OTHER | END | disposition home or self-care (01) | LOC: LABWHC1 15:58 | PROVIDERS: ATTEND Family Medicine | DX: Z03.818 Encounter for observation for suspected exposure to other biological agents ruled out (principal) | CPT/HCPCS: U0003; C9803 ==

== ENCOUNTER 2020-06-15 16:54 | Outpatient (CLI) | payer BC, OTHER ==
[2020-06-15] MEDS ORDERED: BETAMET ACET-BETAMETH SOD PHOS 6 MG/ML MDV IM SCH (17:00)
== END 2020-06-15 17:11 | disposition home or self-care (01) ==
LOC: FBPOP 16:54
PROVIDERS: ATTEND Obstetrics & Gynecology Obstetrics
DX: O36.5930 Maternal care for other known or suspected poor fetal growth, third trimester, not applicable or unspecified (principal); Z3A.36 36 weeks gestation of pregnancy; Z91.041 Radiographic dye allergy status
CPT/HCPCS: 96372; J0702

== ENCOUNTER 2020-06-16 17:36 | Outpatient (CLI) | payer BC, OTHER ==
[2020-06-16] MEDS ORDERED: BETAMET ACET-BETAMETH SOD PHOS 6 MG/ML MDV IM SCH (17:45)
== END 2020-06-16 18:22 | disposition home or self-care (01) ==
LOC: FBPOP 17:36
PROVIDERS: ATTEND Obstetrics & Gynecology
DX: O36.5930 Maternal care for other known or suspected poor fetal growth, third trimester, not applicable or unspecified (principal); Z3A.36 36 weeks gestation of pregnancy; Z91.041 Radiographic dye allergy status
CPT/HCPCS: 59025; 96372; J0702

== ENCOUNTER 2020-06-22 10:04 | Inpatient (IN) | payer BC, OTHER ==
[2020-06-18 14:21] VITALS: BMI 38.4
[2020-06-22] MEDS ORDERED: CITRIC ACID-SODIUM CITRATE 15 ML CUP PO ONE (10:40)
[2020-06-22] MEDS: LACTATED RINGERS 1,000 ML IV SCH ×4 (10:52→21:27)
[2020-06-22 10:59] LABS: Basophils % (A) 0 %; Eosinophils # (A) 0.1 k/uL (0-0.7); Eosinophils % (A) 0 %; HCT 38.3 % (34.0-46.0); HGB 13.3 gm/dL (11.4-16.0); Lymphocytes # (A) 2.7 k/uL (1.0-4.8); Lymphocytes % (A) 23 %; MCH 33.2 pg (25.0-35.0); MCHC 34.7 g/dL (31.0-37.0); MCV 95.7 fL (80.0-100.0); Mean Platelet Volume 7.3; Monocytes # (A) 0.9 k/uL (0-1.0); Monocytes % (A) 7 %; Neutrophils # (A) 8.1 k/uL (1.3-7.7); Neutrophils % (A) 67 %; Platelet Count 268 k/uL (150-450); WBC 12.1 k/uL (3.8-10.6)
[2020-06-22] MEDS ORDERED: DEXAMETHASONE SOD PHOSPHATE 10 MG/ML 1 ML VIAL ONE (12:06)
[2020-06-22] MEDS ORDERED: OXYTOCIN 10 UNIT/ML 1 ML VIAL ONE (12:06)
[2020-06-22] MEDS ORDERED: diphenhydrAMINE 50 MG/ML 1 ML VIAL ONE (12:06)
[2020-06-22] MEDS ORDERED: ONDANSETRON 4 MG/2 ML VIAL ONE (12:06)
[2020-06-22] MEDS ORDERED: MORPHINE SULFATE (PF) 0.3 MG/0.3 ML SYR ONE (12:06)
[2020-06-22] MEDS ORDERED: METOCLOPRAMIDE 5 MG/ML 2 ML VIAL IVP PRN (12:56)
[2020-06-22] MEDS ORDERED: diphenhydrAMINE 50 MG/ML 1 ML VIAL IVP PRN ×2 (12:56)
[2020-06-22] MEDS ORDERED: ZOLPIDEM 5 MG TAB PO PRN (12:56)
[2020-06-22] MEDS ORDERED: ONDANSETRON 4 MG/2 ML VIAL IVP PRN (12:56)
[2020-06-22] MEDS ORDERED: SIMETHICONE 80 MG CHEWABLE PO PRN (12:56)
[2020-06-22] MEDS ORDERED: diphenhydrAMINE 25 MG CAP PO PRN (12:56)
[2020-06-22] MEDS ORDERED: diphenhydrAMINE 50 MG CAP PO PRN (12:56)
[2020-06-22] MEDS ORDERED: NALOXONE 0.4 MG/ML 1 ML VIAL IV PRN (12:56)
[2020-06-22] MEDS ORDERED: IBUPROFEN IV 800 MG in SODIUM CHLORIDE 0.9% 250 ML IV ONE (12:58)
[2020-06-22] MEDS ORDERED: ACETAMINOPHEN IV (For NPO) 1,000 MG in EMPTY BAG 1 BAG IVPB ONE (12:58)
[2020-06-22] MEDS ORDERED: OXYTOCIN 30 UNITS/500 ML NS 30 UNIT in SALINE 1 500ML.BAG IV SCH (13:00)
--- NOTE | 2020-06-22 13:02 | P.HPOB ---
History of Present Illness H&P Date: 06/22/20 Chief Complaint: IUP at 37-3/7 weeks, history of 1, growth restriction This is a 24-year-old 011 at 37-3/7 weeks that presents to labor and delivery for scheduled section. Patient has a history of 1 and desires repeat. Patient has been receiving routine care which has been complicated by growth restriction. Estimated weight has been below the 4th percentile with normal amniotic fluid index and last current SD ratio of 90th percentile. NSTs and biophysical profiles have been good throughout her 18 no period. Patient does note good movement denies contractions vaginal bleeding or loss of fluid. On bloodwork this patient has a blood type of B+, rubella status immune, hepatitis B surface antigen negative, HIV negative, RPR nonreactive. Review of Systems Constitutional: Denies chills, Denies fatigue, Denies fever Ears, nose, mouth and throat: Denies headache Cardiovascular: Reports leg edema Respiratory: Denies dyspnea Gastrointestinal: Denies constipation, Denies diarrhea, Denies nausea, Denies vomiting Genitourinary: Reports Past Medical History Past Medical History: Thyroid Disorder Additional Past Medical History / Comment(s): hyperparathyroidism, kidney stones History of Any Multi-Drug Resistant Organisms: None Reported Past Surgical History: Appendectomy, Section, Cholecystectomy Additional Past Surgical History / Comment(s): surgery on parathyroid to remove glands Past Anesthesia/Blood Transfusion Reactions: Postoperative Nausea & Vomiting (PONV) Past Psychological History: No Psychological Hx Reported Smoking Status: Never smoker Past Alcohol Use History: None Reported Past Drug Use History: None Reported - Past Family History Father Family Medical History: Hypertension Mother Family Medical History: No Reported History Medications and Allergies Home Medications Medication Instructions Recorded Confirmed Type Calcium Carbonate [Calcium] 600 mg PO DAILY 07/09/19 06/22/20 History Pnv No.95/Ferrous Fum/Folic AC 1 each PO DAILY 07/09/19 06/22/20 History [ Multivitamin Tablet] Allergies Allergy/AdvReac Type Severity Reaction Status Date / Time Iodinated Contrast Media Allergy Hives Verified 06/15/20 16:59 Iodine and Iodide Containing Allergy Rash/Hives Verified 06/18/20 14:14 Produc Exam Osteopathic Statement: *. No significant issues noted on an osteopathic struc tural exam other than those noted in the History and Physical/Consult. Vital Signs Temp Pulse Resp BP Pulse Ox 06/22/20 10:43 97.2 F L 100 18 139/83 97 Intake and Output 06/21/20 06/22/20 06/22/20 22:59 06:59 14:59 Other: Weight 95.254 kg Targeted physical exam is performed in this date and hand collator a well-nourished well-developed female in no acute distress, breathing is noted to be nonlabored, heart has a regular rate and rhythm, abdomen is gravid and appropriate for gestational age, heart tones are noted to be category 1 and she is not zak cervical exam is deferred. Results Result Diagrams: 06/22/20 10:23 Abnormal Lab Results - Last 24 Hours (Table) 06/22/20 Range/Units 10:23 WBC 12.1 H (3.8-10.6) k/uL Neutrophils # 8.1 H (1.3-7.7) k/uL Assessment and Plan (1) 37 weeks gestation of Current Visit: Yes Status: Acute Code(s): Z3A.37 - 37 WEEKS GESTATION OF SNOMED Code(s): 08455726 (2) growth restriction Current Visit: Yes Status: Acute Code(s): ACL5841 - SNOMED Code(s): 57663258 (3) H/O section Current Visit: Yes Status: Acute Code(s): Z98.891 - HISTORY OF UTERINE SCAR FROM PREVIOUS SURGERY SNOMED Code(s): 109883581 Plan: This 24-year-old 011 at 37-3/7 weeks presents for scheduled secondary to history of 1 and known growth restriction. Patient did receive steroids approximately 1 week prior to this delivery date. Patient is counseled on repeat section questions are answered Risser reviewed and patient states understanding and wishes to proceed. Patient is taken back to the operating suite.
--- NOTE | 2020-06-22 13:06 | P.OP ---
Date of Procedure: 06/22/20 Preoperative Diagnosis: IUP at 37-3/7 weeks, history of 1, desires repeat, growth restriction Postoperative Diagnosis: Same Procedure(s) Performed: Repeat section Anesthesia: spinal Surgeon: Radha Ricci Cigarette Making Machine Catcher #1: Tiffanie Dixon Estimated Blood Loss (ml): 410 IV fluids (ml): 600 Urine output (ml): 100 Pathology: other (Placenta) Condition: stable Disposition: observation Indications for Procedure: History of 1 desires repeat, known growth restriction with estimated weight about the 4th percentile Operative Findings: Uterus ovaries and fallopian tubes appeared normal. Lower uterine segment was quite thin upon entry with delivery of the . Description of Procedure: Patient was taken back to the operating suite where spinal anesthesia was found to be adequate by the anesthesia department. She was then prepped and draped in normal sterile fashion in the dorsal supine position. A Pfannenstiel skin incision was made the scalpel and carried through the underlying layer of fascia. The fascia was then incised in the midline and extended laterally. The superior aspect of the fascial incision was then grasped with [place] clamps, elevated and underlying rectus muscle was dissected off sharply. Attention was then turned the inferior aspect of the fascial incision which was grasped tarah clamps, elevated and underlying rectus muscles dissected off sharply once again. The incision was then extended superiorly and inferiorly with good visualization the bladder. The bladder blade was inserted into the pelvis. The vesicouterine peritoneum was identified and the bladder flap was then created. A hysterotomy incision was made with the scalpel amniotomy performed clear fluid was obtained. The was then delivered in the usual fashion in a vertex presentation. The umbilical cord was doubly clamped and cut and the infant was handed off to awaiting RN. The placenta was then delivered manually intact with a three-vessel cord being noted. The uterus was delivered from the abdomen. The uterus was cleared of all clots and debris. The uterine incision was closed with 0 Vicryl in a running locked fashion. A second imbricating suture was performed. Hemostasis was appreciated. The pelvis was then copiously irrigated. The uterine incision was inspected once again and found to be hemostatic. The uterus was returned to the abdomen. The gutters were cleared of all clots and debris and hysterotomy incision was inspected and found to be hemostatic. The peritoneum was loosely reapproximated. The rectus muscles were inspected and found to be hemostatic. The fascia was then closed with 0 Vicryl in a running fashion from one lateral edge the midline and the other lateral edge the midline. The subcutaneous tissue was irrigated found to be hemostatic and closed with 3-0 Vicryl in a running fashion. The skin was closed with 4-0 Vicryl in a running subcuticular fashion. Steri-Strips and sterile dressings were applied. All counts were noted to be correct 2 at the end of the procedure. Patient and infant tolerated delivery well and are resting comfo rtably.
[2020-06-22] MEDS: IBUPROFEN 600 MG TAB PO SCH (21:26)
[2020-06-22] MEDS: ACETAMINOPHEN TAB 500 MG TAB PO SCH ×2 (21:27→23:56)
[2020-06-22] MEDS: SENNOSIDES-DOCUSATE SODIUM 1 EACH TAB PO SCH (21:28)
[2020-06-23] MEDS: IBUPROFEN 600 MG TAB PO SCH ×5 (03:13→20:57)
[2020-06-23] MEDS: ACETAMINOPHEN TAB 500 MG TAB PO SCH ×3 (05:51→14:07)
[2020-06-23 07:08] LABS: Basophils % (A) 0 %; Eosinophils # (A) 0.1 k/uL (0-0.7); Eosinophils % (A) 1 %; HCT 35.7 % (34.0-46.0); HGB 12.1 gm/dL (11.4-16.0); Lymphocytes # (A) 2.7 k/uL (1.0-4.8); Lymphocytes % (A) 16 %; MCHC 33.9 g/dL (31.0-37.0); MCV 97.4 fL (80.0-100.0); Mean Platelet Volume 7.7; Monocytes # (A) 1.2 k/uL (0-1.0); Monocytes % (A) 7 %; Neutrophils # (A) 12.9 k/uL (1.3-7.7); Neutrophils % (A) 75 %; Platelet Count 234 k/uL (150-450); RBC 3.67 m/uL (3.80-5.40); RDW 12.9 % (11.5-15.5); WBC 17.2 k/uL (3.8-10.6)
[2020-06-23] MEDS: SENNOSIDES-DOCUSATE SODIUM 1 EACH TAB PO SCH ×2 (08:17→20:57)
[2020-06-23] MEDS: PRENATAL VIT-IRON-FOLIC ACID 1 EACH CAP PO SCH (08:17)
--- NOTE | 2020-06-23 08:31 | P.PNOBGPC ---
Subjective - Subjective Principal diagnosis: POD 1 RCS growth restriction Interval history: Patient did well overnight. She is ambulating and voiding without difficulty. She is tolerating a regular diet without nausea or vomiting. Her pain is well- controlled. She is breast-feeding. Patient reports: Reports appetite normal, Reports voiding normally, Reports pain well controlled, Reports ambulating normally [place]: doing well Objective - Vital Signs Latest vital signs: Vital Signs Temp Pulse Resp BP Pulse Ox 06/23/20 04:00 98.6 F 56 L 18 122/72 06/23/20 00:00 97.7 F 56 L 18 125/59 06/22/20 20:00 98.4 F 58 L 18 120/68 06/22/20 16:00 96.3 F L 54 L 15 122/71 100 06/22/20 15:00 97 F L 57 L 16 119/59 06/22/20 14:30 70 15 06/22/20 14:00 70 16 106/55 06/22/20 13:43 73 15 100/50 97 06/22/20 13:28 72 15 104/53 97 06/22/20 13:13 74 15 105/50 97 06/22/20 12:58 95.6 F L 68 16 96/54 97 06/22/20 10:43 97.2 F L 100 18 139/83 97 Intake and Output 06/22/20 06/23/20 06/23/20 22:59 06:59 14:59 Output Total 400 Balance -400 Output: Urine 400 - Exam Extremities: Present: normal, edema Abdomen: Present: normal appearance Incision: Present: normal, dry, intact Uterus: Present: normal, firm - Labs Labs: Abnormal Lab Results - Last 24 Hours (Table) 06/22/20 06/23/20 Range/Units 10:23 06:48 WBC 12.1 H 17.2 H (3.8-10.6) k/uL RBC 3.67 L (3.80-5.40) m/uL Neutrophils # 8.1 H 12.9 H (1.3-7.7) k/uL Monocytes # 1.2 H (0-1.0) k/uL Assessment and Plan (1) 37 weeks gestation of Current Visit: Yes Status: Acute Code(s): Z3A.37 - 37 WEEKS GESTATION OF SNOMED Code(s): 07667607 (2) growth restriction Current Visit: Yes Status: Acute Code(s): TMC4758 - SNOMED Code(s): 53438019 (3) H/O section Current Visit: Yes Status: Acute Code(s): Z98.891 - HISTORY OF UTERINE SCAR FROM PREVIOUS SURGERY SNOMED Code(s): 093357738 Plan: 24-year-old 3 para 1011 at 37-3/7 weeks that presented to labor and delivery for scheduled repeat section secondary to growth restriction. Patient has done well postoperatively, we'll encourage increased ambulation and advance diet today. Anticipate discharge home tomorrow.
--- NOTE | 2020-06-23 11:03 | P.PN ---
Progress Note - Text Progress Note Date: 06/23/20 (769) Anesthesia Postop day 1 Subjective: Status Post section with Duramorph. Patient seen and examined. Doing well without complaint. VAS 3 out of 10. No nausea or vomiting. Mild pruritus tolerable.. Afebrile. Gross lower extremity strength intact. Without apparent anesthetic complications. Objective: Vital signs reviewed Heart: Regular Rate Lungs: Good chest excursion Abdomen: Appears nondistended Assessment: Status post with Duramorph postop day 1 Plan: Continue current care with your medical management.
[2020-06-24] MEDS: ACETAMINOPHEN TAB 500 MG TAB PO SCH ×2 (01:37→05:24)
[2020-06-24] MEDS: IBUPROFEN 600 MG TAB PO SCH ×2 (04:05→10:08)
[2020-06-24] MEDS: PRENATAL VIT-IRON-FOLIC ACID 1 EACH CAP PO SCH (08:02)
[2020-06-24] MEDS: SENNOSIDES-DOCUSATE SODIUM 1 EACH TAB PO SCH (08:02)
[2020-06-24 08:30] VITALS: RESP 16
--- NOTE | 2020-06-24 08:31 | P.DS ---
Providers Date of admission: 06/22/20 10:04 Expected date of discharge: 06/24/20 Attending physician: Radha Ricci Primary care physician: Stated None - Discharge Diagnosis(es) (1) 37 weeks gestation of Current Visit: Yes Status: Acute (2) growth restriction Current Visit: Yes Status: Acute (3) H/O section Current Visit: Yes Status: Acute (4) S/P section Current Visit: No Status: Acute Hospital Course: This is a 24-year-old 3 now para 2011 that presented to labor and delivery at 37-3/7 weeks for scheduled repeat section. Patient had being followed for growth restriction less than the 4th percentile. Patient did receive steroids the week prior to delivery. Patient was admitted to labor and delivery and planned repeat section was completed without difficulty. For further details on the please see the operative report. Patient delivered a liveborn male on 06/22 at 1228 weight of 6 lbs. 0 oz. and Apgars of 9 and 10 at one and 5 minutes respectively. Patient's postoperative course has been uneventful. On this postoperative day #2 she is ambulating and voiding without difficulty. She is tolerating a regular diet without nausea or vomiting. She states her pain is well-controlled with oral pain medications and she does wish discharge home. Patient Condition at Discharge: Good Plan - Discharge Summary New Discharge Prescriptions: No Action Pnv No.95/Ferrous Fum/Folic AC [ Multivitamin Tablet] 1 each PO DAILY Calcium Carbonate [Calcium] 600 mg PO DAILY Discharge Medication List Calcium Carbonate [Calcium] 600 mg PO DAILY 07/09/19 [History] Pnv No.95/Ferrous Fum/Folic AC [ Multivitamin Tablet] 1 each PO DAILY 07/09/19 [History] Follow up Appointment(s)/Referral(s): Radha Ricci DO [Doctor of Osteopathic Medicine] - 2 Weeks Patient Instructions/Handouts: (DC), (GEN) Discharge Disposition: HOME SELF-CARE
[2020-06-24 15:08] VITALS: BP 112/71; PULSE 74; TEMP 98.1
== END 2020-06-24 11:20 | disposition home or self-care (01) | DRG 788 ==
LOC: 4FBP 10:04
PROVIDERS: ADMIT Obstetrics & Gynecology Obstetrics; ATTEND Obstetrics & Gynecology Obstetrics
PROC: 10D00Z1 Extraction of Products of Conception, Low, Open Approach (ICD-10-PCS; principal; 2020-06-22 12:00)
DX: O34.211 Maternal care for low transverse scar from previous cesarean delivery (principal); L29.9 Pruritus, unspecified; Z37.0 Single live birth; Z3A.37 37 weeks gestation of pregnancy; Z82.49 Family history of ischemic heart disease and other diseases of the circulatory system; Z87.442 Personal history of urinary calculi; E07.9 Disorder of thyroid, unspecified; E21.3 Hyperparathyroidism, unspecified
CPT/HCPCS: 85025; 86850; 86900; 86901; 88307

== ENCOUNTER → 2022-11-25 | Outpatient (CLI) | payer BC, OTHER ==
--- NOTE | 2022-11-26 17:07 | MR ---
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 COMPARISON: None TECHNIQUE: Multi planar, multi sequence imaging was performed through the brain. Specialized thin s equences were obtained through the pituitary gland/sella turcica. Pre-and post gadolinium sequences were obtained. IV Contrast: 9 cc Gadobutrol FINDINGS: Area of delayed enhancement in the left posterior lateral inferior pituitary gland measuring 2 mm. Th e pituitary stalk is not deviated. The rutherford-white junctions, ventricular system, and basal cisterns appear unremarkable. After administr ation of gadolinium, homogeneous pituitary enhancement is seen. The intracranial arterial flow voids are intact. IMPRESSION: 2 mm focus in the left inferior lateral pituitary gland suggestive of microadenoma.
== END | disposition home or self-care (01) ==
LOC: RADMRIMAIN 14:34
PROVIDERS: ATTEND Internal Medicine Endocrinology, Diabetes & Metabolism
DX: E31.21 Multiple endocrine neoplasia [MEN] type I (principal)
CPT/HCPCS: 70553; A9585

== ENCOUNTER → 2023-03-22 | Outpatient (CLI) | payer BC, OTHER ==
[2023-03-23 02:57] LABS: Calcium 9.6 mg/dL (8.7-10.3)
== END | disposition home or self-care (01) ==
LOC: LABWHC1 15:25
PROVIDERS: ATTEND Internal Medicine Endocrinology, Diabetes & Metabolism
DX: E31.21 Multiple endocrine neoplasia [MEN] type I (principal)
CPT/HCPCS: 36415; 82306; 82310; 82941; 83970